=== PATIENT | female | born 1975 | race Caucasian/White ===

== ENCOUNTER 2018-03-09 21:39 | Emergency (ER) | payer OTHER, MEDICAID ==
[~2018-03-09] VITALS: Ht 160 cm; Wt 114.0 kg
[~2018-03-09 21:39] MED LIST: GLUCOPHAGE XR500 MG; MACROBID 100 M100 M1 PO; NAPROSYN500 MG PO
[2018-03-09 21:48] VITALS: BP 159/91
[2018-03-09] MEDS ORDERED: LISINOPRIL10 MG PO (21:50)
[2018-03-09] MEDS ORDERED: NORCO 5-325 TA1 EAC1 PO (22:38)
[2018-03-09] MEDS ORDERED: CLEOCIN HCL150 MG PO (22:38)
== END 2018-03-09 23:00 | disposition home or self-care (01) ==
LOC: M.ERS 21:39
DX: K02.9 Dental caries, unspecified (principal); E11.9 Type 2 diabetes mellitus without complications; I10 Essential (primary) hypertension; Z88.0 Allergy status to penicillin